=== PATIENT | female | born 1980 | race Caucasian/White ===

== ENCOUNTER 2018-10-29 17:20 | Emergency (ER) | payer SELFPAY ==
--- NOTE | 2018-10-29 17:58 | ED.PDOC ---
History of Present Illness - General Chief Complaint: GI Problem Stated Complaint: DIARRHEA, TEMP Time Seen by Provider: 10/29/18 17:50 Information Source: patient Exam Limitations: no limitations - History of Present Illness Initial Comments: DIARRHEA, FEVER AND ABDOMINAL PAIN. DIARRHEA WATERY, NO BLOOD, DIFFUSE ABDOMINAL PAIN. NAUSEA BUT NO VOMITING. SX'S SINCE YESTERDAY. SEEN AT PCP YESTERDAY WAS STARTED ON CIPRO AND FLAGYL FOR DIVERTICULITIS. DID NOT TAKE THEM BUT TOOK AUGMENTIN INSTEAD. TODAY IS WORSE. Abdominal Pain Onset Location: generalized abdomen Pain Radiation: no radiation Quality: moderate Timing/Duration: days - 2 Improving Factors: nothing Worsening Factors: nothing Review of Systems - Review of Systems Constitutional: States: fever - T MAX 100.4. Denies: chills EENTM: States: no symptoms reported Respiratory: States: no symptoms reported Cardiology: States: no symptoms reported Gastrointestinal/Abdominal: States: abdominal pain, diarrhea, nausea. Denies: vomiting Genitourinary: States: no symptoms reported Musculoskeletal: States: no symptoms reported Skin: States: no symptoms reported Endocrine: States: no symptoms reported Hematologic/Lymphatic: States: no symptoms reported Past Medical History (General) - Patient Medical History Hx Hypertension: No Hx Thyroid Disease: Yes Hx Diabetes: No Hx Cancer: No Hx Hepatitis C: No Surgical History: Hysterectomy - Vaccination History Hx Tetanus, Diphtheria Vaccination: No Hx Influenza Vaccination: No Hx Pneumococcal Vaccination: No Immunizations Up to Date: No - Social History Hx Tobacco Use: No Hx Alcohol Use: Yes - SOCIALLY Hx Substance Use: No Hx Substance Use Treatment: No Hx Depression: No - Female History Patient is a Female of Child Bearing Age (10 -59 yrs old): Yes - Triage Comment ED Triage Comment: [facility] Family Medical History - Family History Mother Family History: No Known Living Status: Still Living Physical Exam - Physical Exam General Appearance: Alert, No apparent distress Eyes, Ears, Nose, Throat Exam: PERRL/EOMI, normal ENT inspection Neck: full range of motion, supple Respiratory: lungs clear, no respiratory distress Cardiovascular/Chest: regular rate, rhythm, no murmur Gastrointestinal/Abdominal: no organomegaly, other - DIFFUSE TTP WITH GUARDING AND REBOUND. Back Exam: normal inspection, no CVA tenderness, no vertebral tenderness Extremity: normal range of motion, non-tender Neurologic: alert, normal mood/affect Skin Exam: normal color, warm/dry Lymphatic: no adenopathy Progress - Progress Progress: 10/29/18 20:08 STATES FEELS BETTER BUT STILL WITH MOD DIFFUSE TTP--WILL GET CT - EKG/XRAY/CT XRAY: abdomen - NO FREE AIR BUT SOME SUSPICIOUS LOOPS OF SMALL BOWEL. NO OBSTRUCTION Departure - Departure Clinical Impression: Colitis Time of Disposition: 22:45 Disposition: Discharge to Home or Self Care Condition: Good Departure Forms: ED Discharge - Pt. Copy, Patient Portal Self Enrollment Instructions: Diarrhea and Traveler's Diarrhea, Adult (DC) Referrals: Matt Caro III, MD [Primary Care Provider] - 1-2 Weeks Prescriptions: Dicyclomine HCl [Bentyl] 20 mg PO Q6HR PRN #20 tab PRN Reason: Abdominal Cramping Home Medications: Ambulatory Orders Dicyclomine HCl [Bentyl] 20 mg PO Q6HR PRN #20 tab 10/29/18 Levothyroxine Sodium [Synthroid] 88 mcg PO DAILY 10/29/18
[2018-10-29] MEDS ORDERED: fentaNYL CITRATE INJ 50 MCG/ML AMP IV ONE (18:51)
[2018-10-29] MEDS ORDERED: SODIUM CHLORIDE 0.9% 1000ML 1,000 ML IVS ONE (18:51)
[2018-10-29] MEDS ORDERED: PROMETHAZINE HCL INJ 12.5 MG in SODIUM CHLORIDE 0.9% 50ML 50 ML IVPB ONE (18:51)
[2018-10-29] MEDS ORDERED: PROMETHAZINE HCL INJ 25 MG/ML VIAL ONE (19:07)
[2018-10-29] MEDS ORDERED: SODIUM CHLORIDE 0.9% 50ML 50 ML ONE (19:08)
--- NOTE | 2018-10-29 19:28 | RAD ---
EXAM: TWO VIEW SUPINE and UPRIGHT ABDOMEN AND PA CHEST RADIOGRAPHS CLINICAL INDICATION: Diffuse abdominal pain. COMPARISON: Compared to the chest radiograph of August 15, 2006. FINDINGS: Cardiac size and pulmonary vasculature are normal. Punctate calcified probable granulomas in the lungs bilaterally are unchanged and typical for benign old granulomatous disease. No pleural effusions or pneumothorax. Scattered loops of gas-filled distended small bowel in the midabdomen. Findings suspicious for bowel wall thickening in the transverse colon. Bowel gas extends into the rectum. No high-grade mechanical bowel obstruction or extraluminal bowel gas. IMPRESSION: 1. Suspect mid to lower abdominal inflammatory process without high-grade mechanical bowel obstruction or extraluminal bowel gas. Post intravenous contrast CT would prove useful for further evaluation as clinically warranted. 2. Unchanged benign old granulomatous disease in both lungs. Otherwise, normal chest radiograph. Electronically signed by: Taco Oates MD 10/29/2018 7:26 PM CDT
[2018-10-29 22:17] VITALS: O2SAT 99
--- NOTE | 2018-10-29 22:23 | CT ---
EXAM: Abdomen/Pelvis w/Contrast CLINICAL INDICATION: 38-year-old female with abdominal pain. COMPARISON: None. EXAMINATION: CT of the abdomen and pelvis was performed following intravenous administration of contrast. Oral contrast was administered. Multiplanar reformatted images were provided. This exam was performed according to our departmental dose optimization program which includes use of automated exposure control, adjustment of the mA and/or kV according to patient size and/or use of iterative reconstruction technique. FINDINGS: Chest: Evaluation through the lung bases reveals no focal opacity, pleural effusion or pneumothorax. Heart size is within normal limits. No pericardial effusion. Abdomen and pelvis: The liver, gallbladder, pancreas, spleen, bilateral kidneys and bilateral adrenal glands are within normal limits. Multiple foci of calcification present within the spleen, nonspecific finding which can be seen with sequela of granulomatous disease. The vessels are patent and normal in caliber. No abdominopelvic lymph nodes are noted to be pathologically enlarged by CT measurement criteria. Diffuse wall thickening of the large bowel infectious or inflammatory process including the possibility of C. Difficile colitis in the correct clinical setting. Small volume of free fluid present within the dependent pelvis, a nonspecific finding. Additionally, there appears to be diffuse wall thickening of the distal ileal bowel including the terminal ileum. Few prominent lymph nodes are identified at the level of the cecum, not pathologically enlarged by CT measurement criteria however may be reactive in etiology. There is associated mild nonspecific wall thickening of the appendix top normal in size measuring up to 7 mm. No focal periappendiceal stranding is identified. The proximal small bowel is within normal limits without abnormal bowel wall thickness or bowel dilation. No free air. No free abdominopelvic fluid collections. The osseous structures are within normal limits. IMPRESSION: 1. Diffuse pancolonic and distal ileal bowel wall thickening with liquid fecal content raising the concern for infectious or inflammatory colitis including possibility of C. Difficile colitis in the correct clinical setting. 2. Free fluid present within the dependent pelvis, a nonspecific finding which may be physiologic in a patient this age. Electronically signed by: Alicia Guadalupe MD 10/29/2018 10:20 PM CDT
[2018-10-29 22:59] VITALS: BP 116/85; TEMP 98.4
== END 2018-10-29 22:58 | disposition home or self-care (01) ==
LOC: ER 17:20
DX: K52.9 Noninfective gastroenteritis and colitis, unspecified (principal); E07.9 Disorder of thyroid, unspecified
CPT/HCPCS: 36415; 74019; 74177; 80053; 83630; 85025; 87045; 87046; 87324; 87449; A4216; J2550; J3010; J7030

== ENCOUNTER → 2018-12-18 | Outpatient (CLI) | payer OTHER ==
--- NOTE | 2018-12-18 10:07 | MRI ---
Study: MRI of the Left Knee. Indication: PAIN IN LEFT KNEE Technique: Multiplanar, multi sequence MRI of the left knee was obtained without intravenous contrast. Comparison: None Findings: ACL, PCL, and lateral collateral ligament complex intact. Acute grade 1/2 MCL sprain. Bowing, surrounding edema, mild interstitial fissuring proximal MCL. No full-thickness transection or prolapse. Medial meniscus and lateral meniscus intact. No high-grade chondral defect medial or lateral knee compartments. Low-grade tendinosis quadriceps tendon insertion and patellar tendon origin without tear. Patella normally located. No high-grade chondral defect patellofemoral compartment. Moderate size knee effusion. Mild marrow edema posterolateral margin lateral femoral condyle which may be contusive or reactive. No fracture. Edema tracks along the medial retinaculum without features of the patellar dislocation relocation event. Impression: Acute grade 1-2 proximal MCL sprain. Intact menisci. Low-grade tendinosis quadriceps tendon insertion and patellar tendon origin. Mild marrow edema at the posterolateral margin lateral femoral condyle. No fracture. Moderate size knee effusion. Electronically signed by: Jeffry Cortez MD 12/18/2018 10:05 AM CDT
== END ==
LOC: MRI 08:04
PROVIDERS: ATTEND Nurse Practitioner Family
DX: S83.412A Sprain of medial collateral ligament of left knee, initial encounter (principal); M76.892 Other specified enthesopathies of left lower limb, excluding foot; M25.462 Effusion, left knee